=== PATIENT | female | born 1960 | race African-American/Black ===

== ENCOUNTER 2017-09-09 14:22 | Emergency (ER) | payer OTHER ==
[~2017-09-09] VITALS: Ht 165.1 cm; Wt 86.2 kg
[~2017-09-09 14:22] MED LIST: AMLODIPINE BESYL5 MG PO; BENTYL20 MG PO; CIPROFLOXACIN500 M1 PO; CYCLOBENZAPRINE5 MG PO; FLEXERIL PO; HYDROCHLOROTHIA25 M1 PO; HYDROCODON-ACE1 EAC5 PO; IBUPROFEN 800800 M1 PO; IBUPROFEN 800800 MG PO; KEFLEX500 MG PO; NORCO 5-325 TA1 EACH PO; NORFLEX100 MG PO; PERCOCET 5-3251 EACH PO; PERCOCET 7.5-51 EACH PO; PYRIDIUM200 MG PO; TRAMADOL 50 MG50 MG PO
[2017-09-09] MEDS ORDERED: ALLOPURINOL 10100 M1 PO (14:40)
[2017-09-09] MEDS ORDERED: NORVASC10 MG PO (14:40)
[2017-09-09] MEDS ORDERED: PERCOCET 10-321 EACH PO (14:40)
[2017-09-09] MEDS ORDERED: ASPIR 8181 MG PO (14:41)
[2017-09-09] MEDS ORDERED: CELEBREX 200 M200 M1 PO (14:41)
[2017-09-09] MEDS ORDERED: WELLBUTRIN SR150 MG PO (14:41)
[2017-09-09] MEDS ORDERED: REXULTI3 MG PO (14:41)
[2017-09-09] MEDS ORDERED: ARIMIDEX1 MG PO (14:41)
[2017-09-09] MEDS ORDERED: FLUOXETINE HCL40 MG PO (14:42)
[2017-09-09] MEDS ORDERED: FLEXERIL PO (14:42)
[2017-09-09] MEDS ORDERED: FLOVENT HFA 4444 MCG INH (14:42)
[2017-09-09] MEDS ORDERED: LISINOPRIL10 MG PO (14:43)
[2017-09-09] MEDS ORDERED: HYDROCHLOROTHIA25 M2 PO (14:43)
[2017-09-09] MEDS ORDERED: NEURONTIN600 MG PO (14:43)
[2017-09-09] MEDS ORDERED: NORCO 10-325 T1 EACH PO (14:43)
[2017-09-09] MEDS ORDERED: OMEPRAZOLE40 MG PO (14:44)
[2017-09-09] MEDS ORDERED: MYRBETRIQ50 MG PO (14:44)
[2017-09-09] MEDS ORDERED: TOPAMAX 25 MG T25 M1 PO (14:45)
[2017-09-09] MEDS ORDERED: TRIAMCINOLONE A80 G2 TOP (14:45)
[2017-09-09] MEDS ORDERED: QUETIAPINE FUM100 MG PO (14:45)
[2017-09-09 15:49] LABS: ABSOLUTE NEUTROPHILS 7.9 thou/uL (1.4-8.2); BASOPHILS 0.6 % (0.0-2.0); EOSINOPHILS 1.7 % (0.0-3.0); HEMATOCRIT 38.3 % (37.0-47.0); LYMPHOCYTES 21.8 % (24.0-44.0); MCH 29.6 pg (26.0-34.0); MCHC 33.9 g/dL (28.0-37.0); MCV 87.2 fL (80.0-100.0); PLATELET COUNT 262 thou/uL (150-400); POLYS 69.9 % (36.0-66.0); RBC 4.39 mil/uL (4.20-5.00); RDW 13.8 % (10.5-14.5); WBC 11.3 thou/uL (4.0-11.0)
[2017-09-09 15:57] LABS: CALCIUM 9.1 mg/dL (8.5-10.1); CREATININE 1.1 mg/dL (0.6-1.0)
[2017-09-09 16:03] LABS: ALBUMIN 3.5 g/dL (3.4-5.0); TOTAL BILIRUBIN 0.2 mg/dL (<0.1-1.0); TOTAL PROTEIN 7.4 g/dL (6.4-8.2)
[2017-09-09 16:34] VITALS: BP 127/79
== END 2017-09-09 16:36 | disposition home or self-care (01) ==
LOC: ER 14:22
PROVIDERS: Emergency Medicine
DX: M25.561 Pain in right knee (principal); F32.9 Major depressive disorder, single episode, unspecified; I10 Essential (primary) hypertension; G89.29 Other chronic pain; M54.9 Dorsalgia, unspecified; Z85.3 Personal history of malignant neoplasm of breast

== ENCOUNTER 2019-02-02 19:52 | Emergency (ER) | payer OTHER ==
[~2019-02-02] VITALS: Ht 162.6 cm; Wt 93.0 kg
[~2019-02-02 19:52] MED LIST changes: +ALLOPURINOL 10100 M1 PO; +ANTIVERT25 MG PO; +ARIMIDEX1 MG PO; +ASPIR 8181 MG PO; +CELEBREX 200 M200 M1 PO; +FLOVENT HFA 4444 MCG INH; +FLUOXETINE HCL40 MG PO; +HYDROCHLOROTHIA25 M2 PO; +LISINOPRIL10 MG PO; +MYRBETRIQ50 MG PO; +NEURONTIN600 MG PO; +NORCO 10-325 T1 EACH PO; +NORVASC10 MG PO; +OMEPRAZOLE40 MG PO; +PERCOCET 10-321 EACH PO; +QUETIAPINE FUM100 MG PO; +REXULTI3 MG PO; +TOPAMAX 25 MG T25 M1 PO; +TRIAMCINOLONE A80 G2 TOP; +WELLBUTRIN SR150 MG PO
[2019-02-02] MEDS ORDERED: IBRANCE125 MG PO (20:18)
[2019-02-02] MEDS ORDERED: OXYCODONE HCL 55 MG PO (20:21)
[2019-02-02] MEDS ORDERED: BREO ELLIPTA 11 EACH INH (20:23)
[2019-02-02 20:26] LABS: URINE BILIRUBIN NEGATIVE (Negative); URINE BLOOD 1+ (Negative); URINE CLARITY CLEAR; URINE COLOR YELLOW; URINE GLUCOSE-RANDOM* NEGATIVE (Negative); URINE KETONES NEGATIVE (Negative); URINE LEUKOCYTES-REFLEX NEGATIVE (Negative); URINE NITRITE-REFLEX NEGATIVE (Negative); URINE PROTEIN (DIPSTICK) NEGATIVE (Negative); URINE UROBILINOGEN 0.2 E.U./dl (0.2-1.0)
[2019-02-02 20:32] LABS: SQUAMOUS 4-10 Moderate /LPF (0-3)
[2019-02-02 20:33] LABS: BACTERIA-REFLEX None Seen /HPF (None Seen); CASTS None Seen /LPF (None Seen); CRYSTALS None Seen /LPF (None Seen); URINE RBC 3-10 Few /HPF (0-2); URINE WBC-REFLEX 0-5 Rare /HPF (0-5)
[2019-02-02 20:53] LABS: ABSOLUTE NEUTROPHILS 9.1 thou/uL (1.4-8.2); BASOPHILS 1.3 % (0.0-2.0); EOSINOPHILS 0.1 % (0.0-3.0); HEMATOCRIT 37.2 % (37.0-47.0); HEMOGLOBIN 12.6 gm/dL (12.0-15.0); LYMPHOCYTES 21.7 % (24.0-44.0); MCH 29.9 pg (26.0-34.0); MCHC 33.8 g/dL (28.0-37.0); MCV 88.5 fL (80.0-100.0); MONOCYTES 2.8 % (1.0-8.0); PLATELET COUNT 314 thou/uL (150-400); POLYS 74.1 % (36.0-66.0); RBC 4.21 mil/uL (4.20-5.00); RDW 17.2 % (10.5-14.5); WBC 12.3 thou/uL (4.0-11.0)
[2019-02-02 21:02] LABS: CALCIUM 8.6 mg/dL (8.5-10.1); CREATININE 0.9 mg/dL (0.6-1.0)
[2019-02-02 21:09] LABS: ALBUMIN 3.8 g/dL (3.4-5.0); TOTAL BILIRUBIN 0.2 mg/dL (<0.1-1.0)
[2019-02-03 00:22] VITALS: BP 111/58
== END 2019-02-03 00:14 | disposition home or self-care (01) ==
LOC: ER 19:52
PROVIDERS: Emergency Medicine
DX: R10.84 Generalized abdominal pain (principal); M79.604 Pain in right leg; M79.605 Pain in left leg; I10 Essential (primary) hypertension; F32.9 Major depressive disorder, single episode, unspecified; G89.29 Other chronic pain; M54.9 Dorsalgia, unspecified; Z85.3 Personal history of malignant neoplasm of breast; Z98.890 Other specified postprocedural states; Z91.048 Other nonmedicinal substance allergy status; Z90.710 Acquired absence of both cervix and uterus

== ENCOUNTER 2019-10-24 18:34 | Emergency (ER) | payer OTHER ==
[~2019-10-24] VITALS: Ht 165.1 cm; Wt 113.4 kg
[~2019-10-24 18:34] MED LIST changes: +BREO ELLIPTA 11 EACH INH; +IBRANCE125 MG PO; +OXYCODONE HCL 55 MG PO
[2019-10-24 19:45] LABS: ABSOLUTE NEUTROPHILS 11.5 thou/uL (1.4-8.2); BASOPHILS 0.5 % (0.0-2.0); EOSINOPHILS 0.3 % (0.0-3.0); HEMATOCRIT 36.3 % (37.0-47.0); HEMOGLOBIN 12.3 gm/dL (12.0-15.0); LYMPHOCYTES 16.8 % (24.0-44.0); MCH 29.1 pg (26.0-34.0); MCV 85.8 fL (80.0-100.0); MONOCYTES 3.9 % (1.0-8.0); PLATELET COUNT 329 thou/uL (150-400); POLYS 78.5 % (36.0-66.0); RBC 4.23 mil/uL (4.20-5.00); RDW 14.7 % (10.5-14.5); WBC 14.6 thou/uL (4.0-11.0)
[2019-10-24 19:59] LABS: ANION GAP 10 mmol/L (7-16); BUN 11 mg/dL (7-18); CALCIUM 9.9 mg/dL (8.5-10.1); CHLORIDE 99 mmol/L (98-107); CO2 29 mmol/L (21-32); CREATININE 1.2 mg/dL (0.6-1.0); GLUCOSE 95 mg/dL (74-106); POTASSIUM 3.6 mmol/L (3.5-5.1); SODIUM 138 mmol/L (136-145)
[2019-10-24 20:09] LABS: ALBUMIN 3.8 g/dL (3.4-5.0); SGOT 18 U/L (15-37); SGPT 19 U/L (30-65); TOTAL BILIRUBIN 0.3 mg/dL (<0.1-1.0); TOTAL PROTEIN 8.4 g/dL (6.4-8.2); TROPONIN-I <0.06 ng/mL (<0.06)
[2019-10-24] MEDS ORDERED: DOXYCYCLINE 10100 MG PO (21:41)
[2019-10-24 22:14] VITALS: BP 180/90
--- NOTE | 2019-10-25 09:58 | EKG ---
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1960 Requested By: Lisandro Calzada Order Number: [id number] MD: Randell Alvarez Measurements Intervals [place] Rate: 56 P: 22 SD: 170 QRS: -26 QRSD: 91 T: 46 QT: 428 QTc: 414 Interpretive Statements Sinus rhythm Probable left atrial enlargement Borderline left axis deviation Compared to ECG 02/14/2018 12:08:18 No significant change was found Electronically Signed On 10-25-2019 9:56:50 CDT by Randell Alvarez [email or web address] <ELECTRONICALLY SIGNED> By: Randell Alvarez MD, FACC 10/25/19 [id number] Randell Alvarez MD, [facility] /EPI
== END 2019-10-24 22:15 | disposition home or self-care (01) ==
LOC: ER 18:34
PROVIDERS: Emergency Medicine
DX: G89.3 Neoplasm related pain (acute) (chronic) (principal); R07.9 Chest pain, unspecified; M54.9 Dorsalgia, unspecified; R11.2 Nausea with vomiting, unspecified; C50.912 Malignant neoplasm of unspecified site of left female breast; I10 Essential (primary) hypertension; G89.29 Other chronic pain; Z79.899 Other long term (current) drug therapy; Z79.82 Long term (current) use of aspirin; Z90.710 Acquired absence of both cervix and uterus; Z98.890 Other specified postprocedural states

== ENCOUNTER 2020-02-09 12:43 | Emergency (ER) | payer OTHER ==
[~2020-02-09] VITALS: Ht 162.6 cm; Wt 83.5 kg
[~2020-02-09 12:43] MED LIST changes: +DOXYCYCLINE 10100 MG PO
[2020-02-09 15:03] LABS: ABSOLUTE NEUTROPHILS 10.2 thou/uL (1.4-8.2); BASOPHILS 0.7 % (0.0-2.0); EOSINOPHILS 0.1 % (0.0-3.0); HEMATOCRIT 36.4 % (37.0-47.0); HEMOGLOBIN 12.3 gm/dL (12.0-15.0); LYMPHOCYTES 11.6 % (24.0-44.0); MCH 29.9 pg (26.0-34.0); MCHC 33.7 g/dL (28.0-37.0); MCV 88.9 fL (80.0-100.0); MONOCYTES 4.7 % (1.0-8.0); PLATELET COUNT 313 thou/uL (150-400); POLYS 82.9 % (36.0-66.0); RBC 4.09 mil/uL (4.20-5.00); RDW 17.7 % (10.5-14.5); WBC 12.3 thou/uL (4.0-11.0)
[2020-02-09 15:14] LABS: CALCIUM 8.7 mg/dL (8.5-10.1); CREATININE 0.8 mg/dL (0.6-1.0); POTASSIUM 3.9 mmol/L (3.5-5.1)
[2020-02-09] MEDS ORDERED: CIPROFLOXACIN500 M1 PO (17:06)
[2020-02-09 18:17] VITALS: BP 175/107
== END 2020-02-09 18:17 | disposition home or self-care (01) ==
LOC: ER 12:43
PROVIDERS: Emergency Medicine
DX: H60.92 Unspecified otitis externa, left ear (principal); R22.0 Localized swelling, mass and lump, head; I10 Essential (primary) hypertension; G89.29 Other chronic pain; M54.9 Dorsalgia, unspecified; Z90.710 Acquired absence of both cervix and uterus; Z79.82 Long term (current) use of aspirin; Z79.899 Other long term (current) drug therapy; Z91.09 Other allergy status, other than to drugs and biological substances

== ENCOUNTER 2020-03-13 07:50 | Emergency (ER) | payer OTHER ==
[~2020-03-13] VITALS: Ht 162.6 cm; Wt 80.7 kg
[2020-03-13] MEDS ORDERED: TRAZODONE HCL50 MG PO (08:03)
[2020-03-13] MEDS ORDERED: KISQALI1 EAC1 PO (08:04)
[2020-03-13] MEDS ORDERED: FENTANYL PATCH75 MCG TRANSDERM (08:04)
[2020-03-13 08:57] LABS: HEMATOCRIT 36.5 % (37.0-47.0); MCH 29.5 pg (26.0-34.0); MCHC 32.8 g/dL (28.0-37.0); MCV 89.7 fL (80.0-100.0); RBC 4.07 mil/uL (4.20-5.00); RDW 15.6 % (10.5-14.5); WBC 8.9 thou/uL (4.0-11.0)
[2020-03-13 09:05] LABS: ANION GAP 13 mmol/L (7-16); BUN 7 mg/dL (7-18); CALCIUM 8.9 mg/dL (8.5-10.1); CHLORIDE 103 mmol/L (98-107); CO2 24 mmol/L (21-32); CREATININE 0.8 mg/dL (0.6-1.0); GLUCOSE 104 mg/dL (74-106); POTASSIUM 3.6 mmol/L (3.5-5.1); SODIUM 140 mmol/L (136-145)
[2020-03-13 09:13] LABS: TROPONIN-I <0.06 ng/mL (<0.06)
[2020-03-13 11:49] LABS: APTT 29.3 Seconds (24.5-32.8); PROTIME 10.4 Seconds (9.3-11.4)
[2020-03-13 15:00] VITALS: BP 177/82
--- NOTE | 2020-03-15 08:11 | EKG ---
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
== END 2020-03-13 15:00 | disposition short-term general hospital (02) ==
LOC: ER 07:50
PROVIDERS: Emergency Medicine
DX: I82.890 Acute embolism and thrombosis of other specified veins (principal); I10 Essential (primary) hypertension; G89.29 Other chronic pain; M54.9 Dorsalgia, unspecified; Z90.710 Acquired absence of both cervix and uterus; Z79.82 Long term (current) use of aspirin; Z79.899 Other long term (current) drug therapy; Z91.09 Other allergy status, other than to drugs and biological substances

== ENCOUNTER 2021-01-12 10:54 | Emergency (ER) | payer OTHER ==
[~2021-01-12] VITALS: Ht 162.6 cm; Wt 78.5 kg
[~2021-01-12 10:54] MED LIST changes: +FENTANYL PATCH75 MCG TRANSDERM; +KISQALI1 EAC1 PO; +TRAZODONE HCL50 MG PO
[2021-01-12 11:41] LABS: ABSOLUTE NEUTROPHILS 10.4 thou/uL (1.4-8.2); BASOPHILS 0.5 % (0.0-2.0); EOSINOPHILS 0.1 % (0.0-3.0); HEMATOCRIT 37.6 % (37.0-47.0); HEMOGLOBIN 12.4 gm/dL (12.0-15.0); LYMPHOCYTES 10.6 % (24.0-44.0); MCH 29.5 pg (26.0-34.0); MCV 89.3 fL (80.0-100.0); MONOCYTES 5.3 % (1.0-8.0); PLATELET COUNT 389 thou/uL (150-400); POLYS 83.5 % (36.0-66.0); RBC 4.21 mil/uL (4.20-5.00); RDW 14.7 % (10.5-14.5); WBC 12.5 thou/uL (4.0-11.0)
[2021-01-12 11:49] LABS: ANION GAP 11 mmol/L (7-16); BUN 10 mg/dL (7-18); CALCIUM 9.3 mg/dL (8.5-10.1); CHLORIDE 103 mmol/L (98-107); CO2 25 mmol/L (21-32); CREATININE 1.1 mg/dL (0.6-1.0); GLUCOSE 141 mg/dL (74-106); POTASSIUM 3.5 mmol/L (3.5-5.1); SODIUM 139 mmol/L (136-145)
[2021-01-12 11:59] LABS: ALBUMIN 3.6 g/dL (3.4-5.0); SGOT 14 U/L (15-37); SGPT 18 U/L (14-59); TOTAL BILIRUBIN 0.4 mg/dL (0.2-1.0); TOTAL PROTEIN 8.4 g/dL (6.4-8.2); TROPONIN-I <0.06 ng/mL (<0.06)
[2021-01-12 13:33] VITALS: BP 169/91
--- NOTE | 2021-01-12 16:05 | EKG ---
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1960 Requested By: Apolinar Carlson Order Number: [id number] MD: Balta Cortés Measurements Intervals [place] Rate: 56 P: 32 MD: 176 QRS: -30 QRSD: 97 T: 24 QT: 412 QTc: 398 Interpretive Statements Sinus rhythm Probable left atrial enlargement Left axis deviation Abnormal R-wave progression, early transition Baseline wander in lead(s) V3,V4 Compared to ECG 03/13/2020 08:53:54 Left-axis deviation now present Electronically Signed On 01-12-2021 16:05:29 CDT by Balta Cortés [email or web address] <ELECTRONICALLY SIGNED> By: Balta Cortés MD, [facility] 01/12/21 1605 [id number] 1111 Balta Cortés MD, [facility] /EPI
== END 2021-01-12 13:33 | disposition home or self-care (01) ==
LOC: ER 10:54
PROVIDERS: Emergency Medicine
DX: M54.2 Cervicalgia (principal); Z90.710 Acquired absence of both cervix and uterus; I10 Essential (primary) hypertension; F32.9 Major depressive disorder, single episode, unspecified; Z79.2 Long term (current) use of antibiotics; Z79.82 Long term (current) use of aspirin